=== PATIENT | female | born 1970 | race Caucasian/White ===

== ENCOUNTER 2019-01-23 10:25 | Emergency (ER) | payer OTHER ==
[~2019-01-23] VITALS: Ht 157.5 cm; Wt 86.2 kg
[2019-01-23] MEDS ORDERED: VALIUM5 MG PO (10:28)
[2019-01-23] MEDS ORDERED: VENTOLIN HFA 1818 GM INH (10:29)
[2019-01-23] MEDS ORDERED: AMITRIPTYLINE H10 M3 PO (10:29)
[2019-01-23] MEDS ORDERED: PREDNISONE 20 M20 MG PO (12:33)
[2019-01-23 12:55] VITALS: BP 138/89
--- NOTE | 2019-01-25 13:27 | EKG ---
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
== END 2019-01-23 12:56 | disposition home or self-care (01) ==
LOC: ER 10:25
DX: T63.441A Toxic effect of venom of bees, accidental (unintentional), initial encounter (principal); L50.9 Urticaria, unspecified; J45.909 Unspecified asthma, uncomplicated; Z90.710 Acquired absence of both cervix and uterus; Z88.7 Allergy status to serum and vaccine; Z91.030 Bee allergy status; Y92.89 Other specified places as the place of occurrence of the external cause